=== PATIENT | female | born 1950 | race Caucasian/White ===

== ENCOUNTER 2016-10-24 07:02 | Day surgery (SDC) | payer MEDICARE, BC ==
[~2016-10-24 07:02] MED LIST: Lactated Ringers 1,000 ML IV SCH
[2016-10-24] MEDS ORDERED: Propofol 200 MG/20 ML SDV ONE ×2 (08:53→09:10)
[2016-10-24] MEDS ORDERED: fentaNYL 100 MCG/2 ML SDV ONE (08:53)
[2016-10-24 09:57] VITALS: BP 129/80
--- NOTE | 2016-10-24 13:58 | OR ---
DATE OF SURGERY: 10/24/2016. REFERRING PROVIDER: Faby Mercado PA-C. PRE-OPERATIVE DIAGNOSES: 1. Chronic diarrhea which has been gradually worsening over the past 1 year. Positive stool incontinence at times. 2. Change in bowel habits with 5 loose stools per day recently. Last colonoscopy in 2007 was normal. Of note, she did start metformin about a year ago. POST-OPERATIVE DIAGNOSES: 1. Moderate descending and sigmoid diverticulosis. 2. Mild hemorrhoids. 3. Random colon biopsies done given her history of chronic diarrhea. PROCEDURE: Colonoscopy with random colon biopsies using cold forceps. SURGEON: Jose Harvey M.D. ANESTHESIA: Monitored anesthesia care. BOWEL PREP: Good DESCRIPTION OF OPERATION: Quin is a 66-year-old female who was brought to the endoscopy suite after discussing risks and benefits of the procedure. Informed consent was obtained for conscious sedation and colonoscopy with or without biopsy and/or polypectomy. We also discussed possibility of missed lesions. Pre-procedure exam was unremarkable. IV, oxygen, and monitors were placed. The patient was placed in the left lateral decubitus position. Sedation was administered and a digital rectal exam was performed and unremarkable except for some fixed mild external hemorrhoids. Colonoscope was passed into the rectum and slowly advanced all the way to the cecum. The cecum was viewed and photographed. I did attempt an ileocecal valve intubation, although this was unsuccessful. The colonoscope was slowly withdrawn and the mucosa was closed observed in a direct circumferential manner. The ascending colon was unremarkable. The transverse colon was unremarkable. The descending and sigmoid colon did reveal some moderate diverticulosis without any evidence of inflammation or bleeding. Retroflexion was performed. Rectal mucosa was remarkable for some mild internal hemorrhoids. Throughout the scope extraction, we did do random colon biopsies to check for any microscopic colitis. There was no evidence of any gross colitis on today's exam. Scope was removed. The patient tolerated the procedure well. The patient was monitored until that baseline status. Discharge instructions were reviewed and the patient was discharged in good condition. COMPLICATIONS: None. TOTAL TIME: 20 minutes. ESTIMATED BLOOD LOSS: Less than 1 mL. RECOMMENDATIONS/FOLLOW-UP: We will await results of path report to determine ideal followup interval and to check to make sure there is no evidence of any microscopic colitis. I will have the patient hold her aspirin for 3 days just to limit any chance of bleeding. I would like to kindly thank Faby Mercado PA-C, for this referral. DMB: 10/24/2016 09:36:34 MODL: 10/24/2016 11:10:37 /[id number]
== END 2016-10-24 11:50 | disposition home or self-care (01) ==
LOC: VM.SDS 07:02
PROVIDERS: ATTEND Family Medicine
DX: K57.30 Diverticulosis of large intestine without perforation or abscess without bleeding (principal); K64.8 Other hemorrhoids; I10 Essential (primary) hypertension; E78.5 Hyperlipidemia, unspecified; J45.20 Mild intermittent asthma, uncomplicated; E66.9 Obesity, unspecified; Z88.1 Allergy status to other antibiotic agents; Z88.2 Allergy status to sulfonamides; Z91.09 Other allergy status, other than to drugs and biological substances; Z90.710 Acquired absence of both cervix and uterus; Z79.82 Long term (current) use of aspirin; Z98.890 Other specified postprocedural states; Z79.84 Long term (current) use of oral hypoglycemic drugs; Z79.899 Other long term (current) drug therapy; Z68.35 Body mass index [BMI] 35.0-35.9, adult
CPT/HCPCS: 00810; 45380; 82962; J2704; J3010; J7120; 88305